=== PATIENT | male | born 1945 | race Caucasian/White ===

== ENCOUNTER 2020-04-08 18:10 | Day surgery (SDCO) | payer OTHER ==
[~2020-04-08 18:10] MED LIST: COLACE100 MG PO; DAILY VALUE1 EACH PO; ELIQUIS5 MG PO; HYDROXYZINE HCL10 MG PO; K-DUR20 MEQ PO; LASIX40 MG PO; LIPITOR 10MG TA10 MG PO; NEURONTIN100 MG PO; THERMOTABS TAB1 EACH PO; TOPROL XL 50 MG50 MG PO; TOPROL XL100 MG PO; ZAROXOLYN2.5 MG PO
[2020-04-08 19:25] LABS: BASOPHIL 0.3 % (0-2); EOSINOPHIL 0.1 % (0-7); HCT 43.7 % (42.0-52.0); LYMPHOCYTE 7.2 % (15-48); MCH 34.6 pg (25.0-31.0); MCHC 34.3 g/dL (32.0-36.0); MCV 100.9 fL (78.0-100.0); MONOCYTE 14.2 % (0-12); MPV 10.7 fL (6.0-9.5); NEUTROPHIL 77.6 % (41-80); NRBC 0; PLT 183 K/uL (150-400); RBC 4.33 M/uL (4.70-6.00); RDW 12.7 % (11.5-14.0); WBC 10.3 K/uL (4.0-10.5)
[2020-04-08 19:29] LABS: INR 2.12 (0.9-1.2); PROTHROMBIN TIME 22.6 SECONDS (11.4-13.6)
[2020-04-08 19:37] LABS: ALBUMIN 2.7 g/dL (3.4-5.0); BILIRUBIN - TOTAL 1.9 mg/dL (0.2-1.0); BUN/CREAT RATIO (CALC) 22.6 RATIO; CREATININE 0.53 mg/dL (0.67-1.17); GLOBULIN (CALCULATION) 5.4 g/dL; POTASSIUM 3.8 mmol/L (3.5-5.1); TOTAL PROTEIN 8.1 g/dL (6.4-8.2)
[2020-04-08 21:30] LABS: BILIRUBIN NEGATIVE (NEGATIVE); BLOOD 2+ Ery/uL (NEGATIVE); CLARITY CLEAR (CLEAR); COLOR YELLOW (YELLOW); GLUCOSE (U) NORMAL (NORMAL); LEUKOCYTES NEGATIVE Leu/uL (NEGATIVE); NITRITE NEGATIVE (NEGATIVE); PROTEIN TRACE (LOW) mg/dL (NEGATIVE); SPECIFIC GRAVITY >=1.030 (1.001-1.030); pH 5.5 (5.0-9.0)
[2020-04-08 21:34] LABS: BACTERIA TRACE
[2020-04-08 22:06] LABS: CORONAVIRUS 2019 SARS-COV-2 NEGATIVE (NEGATIVE); INFLUENZA A NAA NEGATIVE (NEGATIVE)
[2020-04-08] MEDS ORDERED: ELIQUIS5 MG PO (23:21)
[2020-04-08] MEDS ORDERED: ATORVASTATIN CA10 MG PO (23:22)
[2020-04-08] MEDS ORDERED: LASIX40 MG PO (23:23)
[2020-04-08] MEDS ORDERED: TOPROL XL100 MG PO (23:24)
[2020-04-08] MEDS ORDERED: K-DUR20 MEQ PO (23:25)
[2020-04-08] MEDS ORDERED: ONE-DAILY MULT1 EACH PO (23:26)
[2020-04-09 06:03] LABS: BASOPHIL 0.4 % (0-2); EOSINOPHIL 0.1 % (0-7); HCT 38.5 % (42.0-52.0); HGB 13.3 g/dl (13.2-18.0); LYMPHOCYTE 11.5 % (15-48); MCH 34.9 pg (25.0-31.0); MCHC 34.5 g/dL (32.0-36.0); MONOCYTE 17.2 % (0-12); MPV 10.4 fL (6.0-9.5); NEUTROPHIL 70.2 % (41-80); NRBC 0; PLT 164 K/uL (150-400); RBC 3.81 M/uL (4.70-6.00); RDW 12.6 % (11.5-14.0); WBC 10.5 K/uL (4.0-10.5)
[2020-04-09 06:11] LABS: INR 2.05 (0.9-1.2)
[2020-04-09 06:33] LABS: ALBUMIN 2.2 g/dL (3.4-5.0); BILIRUBIN - TOTAL 1.5 mg/dL (0.2-1.0); CREATININE 0.42 mg/dL (0.67-1.17); GLOBULIN (CALCULATION) 4.4 g/dL; MAGNESIUM 1.6 mg/dL (1.8-2.4); PHOSPHORUS 3.5 mg/dL (2.6-4.7); POTASSIUM 3.3 mmol/L (3.5-5.1); TOTAL PROTEIN 6.6 g/dL (6.4-8.2)
[2020-04-10 07:32] LABS: HCT 40.6 % (42.0-52.0); HGB 14.1 g/dl (13.2-18.0); MCHC 34.7 g/dL (32.0-36.0); MCV 100.7 fL (78.0-100.0); MPV 11.6 fL (6.0-9.5); RBC 4.03 M/uL (4.70-6.00); RDW 12.6 % (11.5-14.0); WBC 11.5 K/uL (4.0-10.5)
[2020-04-10 07:45] LABS: CREATININE 0.5 mg/dL (0.67-1.17); MAGNESIUM 1.7 mg/dL (1.8-2.4); POTASSIUM 3.3 mmol/L (3.5-5.1)
[2020-04-11 06:03] LABS: BASOPHIL 0.2 % (0-2); EOSINOPHIL 0.1 % (0-7); HCT 39.9 % (42.0-52.0); HGB 13.7 g/dl (13.2-18.0); LYMPHOCYTE 3.5 % (15-48); MCH 34.3 pg (25.0-31.0); MCHC 34.3 g/dL (32.0-36.0); MONOCYTE 5.9 % (0-12); MPV 11.3 fL (6.0-9.5); NEUTROPHIL 89.4 % (41-80); NRBC 0; PLT 195 K/uL (150-400); RBC 3.99 M/uL (4.70-6.00); RDW 12.6 % (11.5-14.0); WBC 14.9 K/uL (4.0-10.5)
[2020-04-11 06:42] LABS: BILIRUBIN - TOTAL 0.8 mg/dL (0.2-1.0); BUN/CREAT RATIO (CALC) 40.9 RATIO; CREATININE 0.44 mg/dL (0.67-1.17); GLOBULIN (CALCULATION) 4.6 g/dL; POTASSIUM 3.2 mmol/L (3.5-5.1); TOTAL PROTEIN 6.6 g/dL (6.4-8.2); VANCOMYCIN, TROUGH 10.2 ug/mL (10-20)
[2020-04-12] MEDS ORDERED: DOXYCYCLINE MO100 MG PO (08:56)
== END 2020-04-12 16:00 | disposition home or self-care (01) ==
LOC: FER 18:10 → FMS 21:57
PROVIDERS: Internal Medicine; Nurse Practitioner; Physician Assistant; ADMIT Internal Medicine
DX: L03.119 Cellulitis of unspecified part of limb (principal); I11.9 Hypertensive heart disease without heart failure; I48.91 Unspecified atrial fibrillation; I08.1 Rheumatic disorders of both mitral and tricuspid valves; R79.89 Other specified abnormal findings of blood chemistry; B37.2 Candidiasis of skin and nail; E78.5 Hyperlipidemia, unspecified; J45.909 Unspecified asthma, uncomplicated; F10.11 Alcohol abuse, in remission; Z98.890 Other specified postprocedural states; Z88.8 Allergy status to other drugs, medicaments and biological substances; Z88.0 Allergy status to penicillin; Z79.899 Other long term (current) drug therapy; Z82.49 Family history of ischemic heart disease and other diseases of the circulatory system; Z20.822 Contact with and (suspected) exposure to COVID-19; Z87.891 Personal history of nicotine dependence; Z86.79 Personal history of other diseases of the circulatory system
CPT/HCPCS: 36415; 70450; 70551; 71045; 71250; 80048; 80053; 80162; 80202; 81001; 82550; 83605; 83690; 83735; 83880; 84100; 84443; 84484; 85025; 85610; 85730; 86140; 86431; 87040; 87186; 93005; 97110; 97116; 97162; 97166; 97530; 97530-GP; 97535; G0378; G0480; J0692; J1160; J1940; J2270; J3370; J3475; J7030; J7040; J7050; J7512; U0002

== ENCOUNTER 2021-05-18 14:48 | Inpatient (IN) | payer OTHER ==
[~2021-05-18] VITALS: Ht 172.7 cm; Wt 116.0 kg
[~2021-05-18 14:48] MED LIST changes: +ATORVASTATIN CA10 MG PO; +DOXYCYCLINE MO100 MG PO; +ONE-DAILY MULT1 EACH PO
[2021-05-18 16:27] LABS: BASOPHIL 0.2 % (0-2); EOSINOPHIL 0.1 % (0-7); HCT 45.1 % (42.0-52.0); HGB 16.3 g/dl (13.2-18.0); LYMPHOCYTE 5.9 % (15-48); MCH 36.1 pg (25.0-31.0); MCHC 36.1 g/dL (32.0-36.0); MPV 9.7 fL (6.0-9.5); NEUTROPHIL 83.3 % (41-80); NRBC 0; PLT 167 K/uL (150-400); RBC 4.51 M/uL (4.70-6.00); RDW 12.7 % (11.5-14.0); WBC 14.3 K/uL (4.0-10.5)
[2021-05-18 17:01] LABS: ALBUMIN 3.2 g/dL (3.4-5.0); ALKALINE PHOSHATASE 121 U/L (46-116); ALT 50 U/L (16-63); AST 139 U/L (15-37); BILIRUBIN - TOTAL 2.7 mg/dL (0.2-1.0); BUN 25 mg/dL (7-18); BUN/CREAT RATIO (CALC) 37.9 RATIO; CHLORIDE 89 mmol/L (98-107); CO2 (BICARBONATE) 28 mmol/L (21-32); CPK 1769 U/L (39-308); CREATININE 0.66 mg/dL (0.67-1.17); GLOBULIN (CALCULATION) 5.4 g/dL; GLUCOSE 143 mg/dL (74-106); LIPASE 100 U/L (73-393); MAGNESIUM 2.1 mg/dL (1.8-2.4); POTASSIUM 4.3 mmol/L (3.5-5.1); TOTAL PROTEIN 8.6 g/dL (6.4-8.2)
[2021-05-18 17:02] LABS: INR 1.51 (0.9-1.2); PROTHROMBIN TIME 17.5 SECONDS (11.8-13.4)
[2021-05-18 17:03] LABS: PTT 38.4 SECONDS (24.4-34.7)
[2021-05-18 17:15] LABS: LACTIC ACID 2.5 mmol/L (0.4-1.9)
[2021-05-18 18:24] LABS: BILIRUBIN 2+ mg/dL (NEGATIVE); BLOOD 2+ Ery/uL (NEGATIVE); GLUCOSE (U) NORMAL (NORMAL); LEUKOCYTES TRACE Leu/uL (NEGATIVE); NITRITE POSITIVE (NEGATIVE); PROTEIN 1+ mg/dL (NEGATIVE); SPECIFIC GRAVITY 1.025 (1.001-1.030); pH 5.5 (5.0-9.0)
[2021-05-18 18:24] LABS: AMPHETAMINES NEGATIVE (NEGATIVE); BARBITURATES NEGATIVE (NEGATIVE); ECSTASY (MDMA) NEGATIVE (NEGATIVE); MARIJUANA (THC) NEGATIVE (NEGATIVE); METHADONE NEGATIVE (NEGATIVE); OPIATES NEGATIVE (NEGATIVE); OXYCODONE NEGATIVE (NEGATIVE)
[2021-05-18 18:27] LABS: COLOR AMBER (YELLOW)
[2021-05-18 18:28] LABS: CLARITY SLIGHTLY HAZY (CLEAR)
[2021-05-18 18:31] LABS: BACTERIA TRACE; MUCOUS TRACE; RENAL EPITHELIAL CELLS RARE; SQUAMOUS EPITHELIAL CELLS RARE; URINARY WBC RARE
[2021-05-19 06:09] LABS: BASOPHIL 0.4 % (0-2); EOSINOPHIL 0.4 % (0-7); HCT 36.4 % (42.0-52.0); HGB 12.7 g/dl (13.2-18.0); MCH 35.3 pg (25.0-31.0); MCHC 34.9 g/dL (32.0-36.0); MCV 101.1 fL (78.0-100.0); MONOCYTE 10.5 % (0-12); MPV 9.6 fL (6.0-9.5); NEUTROPHIL 77.9 % (41-80); NRBC 0; PLT 131 K/uL (150-400); RDW 13.1 % (11.5-14.0); WBC 10.4 K/uL (4.0-10.5)
[2021-05-19 06:39] LABS: ALBUMIN 2.4 g/dL (3.4-5.0); BILIRUBIN - DIRECT 1.1 mg/dL (0.00-0.20); BILIRUBIN - TOTAL 2.1 mg/dL (0.2-1.0); BUN/CREAT RATIO (CALC) 30.9 RATIO; C-REACTIVE PROTEIN 11.7 mg/dL (<=0.90); CREATININE 0.55 mg/dL (0.67-1.17); GLOBULIN (CALCULATION) 3.5 g/dL; MAGNESIUM 1.9 mg/dL (1.8-2.4); PHOSPHORUS 3.1 mg/dL (2.6-4.7); POTASSIUM 3.3 mmol/L (3.5-5.1)
[2021-05-19 06:40] LABS: TOTAL PROTEIN 5.9 g/dL (6.4-8.2)
--- NOTE | 2021-05-19 08:43 | NUR ---
PT SLEEPING AT 0700 AND 0800. DID NOT ATTEMPT TO WAKE HIM D/T REPORT OF DIFFICULT NIGHT. NOTIFIED BY PHYSICAL THERAPIST THAT PT NOT AROUSING TO VOICE OR STERNAL RUB AT 0835. NOTIFIED. BG 133. ABGS ORDERED. PT RECEIVED 2 MG PO ATIVAN AT 0530.
[2021-05-20 05:42] LABS: BASOPHIL 0.7 % (0-2); EOSINOPHIL 1.4 % (0-7); HGB 13.5 g/dl (13.2-18.0); LYMPHOCYTE 10.3 % (15-48); MCH 36.5 pg (25.0-31.0); MCHC 35.5 g/dL (32.0-36.0); MCV 102.7 fL (78.0-100.0); MONOCYTE 13.3 % (0-12); MPV 9.9 fL (6.0-9.5); NEUTROPHIL 73.7 % (41-80); NRBC 0; PLT 156 K/uL (150-400); WBC 9.1 K/uL (4.0-10.5)
[2021-05-20 06:39] LABS: BUN/CREAT RATIO (CALC) 34.9 RATIO; CREATININE 0.43 mg/dL (0.67-1.17); POTASSIUM 3.1 mmol/L (3.5-5.1)
[2021-05-21 05:45] LABS: BASOPHIL 0.5 % (0-2); EOSINOPHIL 1.4 % (0-7); HGB 13.4 g/dl (13.2-18.0); LYMPHOCYTE 13.6 % (15-48); MCH 35.3 pg (25.0-31.0); MCHC 34.4 g/dL (32.0-36.0); MCV 102.6 fL (78.0-100.0); MONOCYTE 17.1 % (0-12); MPV 9.8 fL (6.0-9.5); NEUTROPHIL 66.6 % (41-80); NRBC 0; PLT 148 K/uL (150-400); RDW 13.2 % (11.5-14.0); WBC 7.7 K/uL (4.0-10.5)
[2021-05-21 06:30] LABS: ALBUMIN 2.2 g/dL (3.4-5.0); BILIRUBIN - DIRECT 0.7 mg/dL (0.00-0.20); BILIRUBIN - TOTAL 1.6 mg/dL (0.2-1.0); BUN/CREAT RATIO (CALC) 37.5 RATIO; CREATININE 0.4 mg/dL (0.67-1.17); GLOBULIN (CALCULATION) 4.6 g/dL; POTASSIUM 3.2 mmol/L (3.5-5.1); TOTAL PROTEIN 6.8 g/dL (6.4-8.2)
[2021-05-22 06:35] LABS: BASOPHIL 0.6 % (0-2); EOSINOPHIL 1.2 % (0-7); HCT 41.1 % (42.0-52.0); HGB 14.2 g/dl (13.2-18.0); LYMPHOCYTE 8.7 % (15-48); MCHC 34.5 g/dL (32.0-36.0); MCV 104.3 fL (78.0-100.0); MONOCYTE 16.6 % (0-12); MPV 9.6 fL (6.0-9.5); NEUTROPHIL 72.2 % (41-80); NRBC 0; PLT 158 K/uL (150-400); RBC 3.94 M/uL (4.70-6.00); RDW 13.1 % (11.5-14.0); WBC 6.8 K/uL (4.0-10.5)
[2021-05-22 06:51] LABS: BUN/CREAT RATIO (CALC) 39.5 RATIO; CREATININE 0.38 mg/dL (0.67-1.17); POTASSIUM 3.3 mmol/L (3.5-5.1)
--- NOTE | 2021-05-22 16:34 | NUR ---
05/22/21 Mr. Quevedo's daughter, Carolyn Li, would like him to go to [facility] for SNF placement. Mr. Quevedo has agreed to placement. However, he is still displaying some confusion. - A referral has been made to [facility].
[2021-05-23 06:18] LABS: BUN/CREAT RATIO (CALC) 43.2 RATIO; CREATININE 0.44 mg/dL (0.67-1.17); POTASSIUM 3.5 mmol/L (3.5-5.1)
--- NOTE | 2021-05-23 10:30 | NUR ---
05/23/21 [facility] has accepted patient pending insurance approval. Patient will need a new COVID test if insurance authorization is received.
--- NOTE | 2021-05-24 13:12 | NUR ---
05/24/21 Patient will meet EMS criteria for transport per BENJAMIN Hill RN, if approved to go to [facility]. Insurance authorization is still pending.
[2021-05-24] MEDS ORDERED: FLORANEX TABLE1 EACH PO (17:55)
[2021-05-24] MEDS ORDERED: SILVASORB44.4 ML TOP (17:55)
[2021-05-24] MEDS ORDERED: TOPROL XL 50 MG50 MG PO (17:55)
[2021-05-24] MEDS ORDERED: DOXYCYCLINE MO100 M1 PO (17:55)
[2021-05-24] MEDS ORDERED: VITAMIN B-1100 M1 PO (17:55)
[2021-05-24] MEDS ORDERED: PANTOPRAZOLE SO40 MG PO (17:55)
[2021-05-24] MEDS ORDERED: DIGITEK125 MCG PO (17:55)
== END 2021-05-24 20:20 | DRG 871 ==
LOC: FER 14:48 → FTCU 19:01
PROVIDERS: Emergency Medicine; Family Medicine; Nurse Practitioner; ADMIT Internal Medicine
PROC: 3E03329 Introduction of Other Anti-infective into Peripheral Vein, Percutaneous Approach (ICD-10-PCS; principal; 2021-05-18)
PROC: HZ2ZZZZ Detoxification Services for Substance Abuse Treatment (ICD-10-PCS; 2021-05-18)
DX: A41.9 Sepsis, unspecified organism (principal); G93.41 Metabolic encephalopathy; J96.01 Acute respiratory failure with hypoxia; L03.116 Cellulitis of left lower limb; M62.82 Rhabdomyolysis; F10.231 Alcohol dependence with withdrawal delirium; I50.32 Chronic diastolic (congestive) heart failure; I48.20 Chronic atrial fibrillation, unspecified; Z20.822 Contact with and (suspected) exposure to COVID-19; I11.0 Hypertensive heart disease with heart failure; R73.9 Hyperglycemia, unspecified; E87.6 Hypokalemia; L89.101 Pressure ulcer of unspecified part of back, stage 1; I87.2 Venous insufficiency (chronic) (peripheral); D53.9 Nutritional anemia, unspecified; F03.90 Unspecified dementia, unspecified severity, without behavioral disturbance, psychotic disturbance, mood disturbance, and anxiety; E78.5 Hyperlipidemia, unspecified; I25.10 Atherosclerotic heart disease of native coronary artery without angina pectoris; E66.9 Obesity, unspecified; H91.90 Unspecified hearing loss, unspecified ear; Z79.01 Long term (current) use of anticoagulants; Z79.899 Other long term (current) drug therapy; Z88.0 Allergy status to penicillin; Z88.8 Allergy status to other drugs, medicaments and biological substances; Z68.38 Body mass index [BMI] 38.0-38.9, adult
CPT/HCPCS: 36415; 36600; 70450; 71045; 72125; 72128; 72131; 73600; 80048; 80053; 80061; 80076; 80305; 81001; 82140; 82248; 82550; 82803; 83036; 83605; 83615; 83690; 83735; 83880; 84100; 84145; 84439; 84443; 84484; 85025; 85610; 85730; 86140; 87040; 93005; 94010; 94640; 94760; 94762; 96372; 97110; 97163; 97167; 97530; 97530-GP; G0480; J0690; J0692; J1650; J2060; J3411; J3475; J3480; J7030; U0002

== ENCOUNTER 2021-05-26 18:09 | Inpatient (IN) | payer OTHER ==
[~2021-05-26] VITALS: Ht 172.7 cm; Wt 119.4 kg
[~2021-05-26 18:09] MED LIST changes: +DIGITEK125 MCG PO; +DOXYCYCLINE MO100 M1 PO; +FLORANEX TABLE1 EACH PO; +PANTOPRAZOLE SO40 MG PO; +SILVASORB44.4 ML TOP; +VITAMIN B-1100 M1 PO
[2021-05-26 19:17] LABS: BASOPHIL 0.4 % (0-2); EOSINOPHIL 0.3 % (0-7); HCT 41.7 % (42.0-52.0); HGB 14.4 g/dl (13.2-18.0); LYMPHOCYTE 4.9 % (15-48); MCH 36.2 pg (25.0-31.0); MCHC 34.5 g/dL (32.0-36.0); MCV 104.8 fL (78.0-100.0); MONOCYTE 3.2 % (0-12); MPV 12.1 fL (6.0-9.5); NEUTROPHIL 90.4 % (41-80); NRBC 0; PLT 183 K/uL (150-400); RBC 3.98 M/uL (4.70-6.00); RDW 13.2 % (11.5-14.0); WBC 15.2 K/uL (4.0-10.5)
[2021-05-26 19:34] LABS: LACTIC ACID 3.8 mmol/L (0.4-1.9)
[2021-05-26 19:42] LABS: BILIRUBIN 1+ mg/dL (NEGATIVE); BLOOD NEGATIVE Ery/uL (NEGATIVE); CLARITY CLEAR (CLEAR); COLOR YELLOW (YELLOW); GLUCOSE (U) NORMAL (NORMAL); LEUKOCYTES NEGATIVE Leu/uL (NEGATIVE); NITRITE NEGATIVE (NEGATIVE); PROTEIN NEGATIVE (NEGATIVE); SPECIFIC GRAVITY 1.025 (1.001-1.030); pH 5.5 (5.0-9.0)
[2021-05-26 19:59] LABS: ALBUMIN 2.2 g/dL (3.4-5.0); BILIRUBIN - TOTAL 0.7 mg/dL (0.2-1.0); CREATININE 0.55 mg/dL (0.67-1.17); GLOBULIN (CALCULATION) 5.8 g/dL
[2021-05-26 23:49] LABS: CORONAVIRUS 2019 SARS-COV-2 NEGATIVE (NEGATIVE); INFLUENZA A NAA NEGATIVE (NEGATIVE)
[2021-05-27] MEDS ORDERED: DEXAMETHASONE 2M2 MG PO (00:33)
[2021-05-27] MEDS ORDERED: DAILY PROBIOTI250 MG PO (00:35)
[2021-05-27] MEDS ORDERED: LASIX10 MG/ML PO (00:37)
[2021-05-27] MEDS ORDERED: LOPRESSOR50 MG PO (00:38)
[2021-05-27] MEDS ORDERED: POTASSIUM20 MEQ/11 PO (00:39)
[2021-05-27] MEDS ORDERED: BETADINE30 ML TOP (00:44)
[2021-05-27] MEDS ORDERED: SANTYL15 GM TOP (00:45)
[2021-05-27] MEDS ORDERED: SILVADENE20 G1 TOP (00:47)
[2021-05-27 06:20] LABS: BASOPHIL 0.3 % (0-2); EOSINOPHIL 2.4 % (0-7); HCT 37.4 % (42.0-52.0); HGB 12.7 g/dl (13.2-18.0); LYMPHOCYTE 4.4 % (15-48); MCH 35.7 pg (25.0-31.0); MCV 105.1 fL (78.0-100.0); MONOCYTE 2.8 % (0-12); MPV 11.9 fL (6.0-9.5); NEUTROPHIL 89.5 % (41-80); NRBC 0; PLT 170 K/uL (150-400); RBC 3.56 M/uL (4.70-6.00); RDW 13.2 % (11.5-14.0); WBC 15.5 K/uL (4.0-10.5)
[2021-05-27 07:20] LABS: BILIRUBIN - TOTAL 0.8 mg/dL (0.2-1.0); CREATININE 0.5 mg/dL (0.67-1.17); GLOBULIN (CALCULATION) 4.7 g/dL; MAGNESIUM 1.9 mg/dL (1.8-2.4); TOTAL PROTEIN 6.7 g/dL (6.4-8.2)
[2021-05-27 07:36] LABS: POTASSIUM 2.6 mmol/L (3.5-5.1)
[2021-05-28 06:05] LABS: BASOPHIL 0.3 % (0-2); EOSINOPHIL 2.2 % (0-7); HCT 37.3 % (42.0-52.0); HGB 12.3 g/dl (13.2-18.0); LYMPHOCYTE 3.8 % (15-48); MCH 34.8 pg (25.0-31.0); MCV 105.7 fL (78.0-100.0); MONOCYTE 2.4 % (0-12); MPV 11.7 fL (6.0-9.5); NEUTROPHIL 90.5 % (41-80); NRBC 0; PLT 218 K/uL (150-400); RBC 3.53 M/uL (4.70-6.00); RDW 13.5 % (11.5-14.0); WBC 20.5 K/uL (4.0-10.5)
[2021-05-28 06:27] LABS: ALBUMIN 1.8 g/dL (3.4-5.0); BILIRUBIN - TOTAL 0.8 mg/dL (0.2-1.0); BUN/CREAT RATIO (CALC) 24.1 RATIO; CREATININE 0.54 mg/dL (0.67-1.17); GLOBULIN (CALCULATION) 4.5 g/dL; MAGNESIUM 1.4 mg/dL (1.8-2.4); PHOSPHORUS 2.7 mg/dL (2.6-4.7); POTASSIUM 2.8 mmol/L (3.5-5.1); TOTAL PROTEIN 6.3 g/dL (6.4-8.2)
[2021-05-28 13:32] LABS: BASOPHIL 0.5 % (0-2); EOSINOPHIL 2.7 % (0-7); HCT 43.3 % (42.0-52.0); HGB 14.7 g/dl (13.2-18.0); MCH 35.6 pg (25.0-31.0); MCHC 33.9 g/dL (32.0-36.0); MCV 104.8 fL (78.0-100.0); MONOCYTE 2.5 % (0-12); MPV 11.4 fL (6.0-9.5); NEUTROPHIL 88.4 % (41-80); NRBC 0; PLT 277 K/uL (150-400); RBC 4.13 M/uL (4.70-6.00); RDW 13.3 % (11.5-14.0); WBC 20.9 K/uL (4.0-10.5)
[2021-05-28 14:49] LABS: C-REACTIVE PROTEIN 9.2 mg/dL (<=0.90); CREATININE 0.59 mg/dL (0.67-1.17); POTASSIUM 3.7 mmol/L (3.5-5.1)
[2021-05-29 00:13] LABS: BILIRUBIN - TOTAL 0.8 mg/dL (0.2-1.0); BUN/CREAT RATIO (CALC) 19.5 RATIO; CREATININE 0.77 mg/dL (0.67-1.17); GLOBULIN (CALCULATION) 4.9 g/dL; MAGNESIUM 1.1 mg/dL (1.8-2.4); POTASSIUM 3.1 mmol/L (3.5-5.1); TOTAL PROTEIN 6.9 g/dL (6.4-8.2)
[2021-05-29 06:14] LABS: BASOPHIL 0.7 % (0-2); HCT 41.1 % (42.0-52.0); HGB 13.7 g/dl (13.2-18.0); LYMPHOCYTE 3.9 % (15-48); MCH 36.2 pg (25.0-31.0); MCHC 33.3 g/dL (32.0-36.0); MCV 108.7 fL (78.0-100.0); MONOCYTE 2.7 % (0-12); MPV 11.7 fL (6.0-9.5); NEUTROPHIL 89.7 % (41-80); NRBC 0; PLT 170 K/uL (150-400); RBC 3.78 M/uL (4.70-6.00); RDW 13.5 % (11.5-14.0); WBC 16.9 K/uL (4.0-10.5)
[2021-05-29 07:04] LABS: PROTHROMBIN TIME 21.8 SECONDS (11.8-13.4)
[2021-05-29 07:06] LABS: TOTAL CELL COUNT 100
[2021-05-29 07:07] LABS: BAND 2 % (0-10); LYMPHOCYTE(M) 8 % (15-48); MONOCYTE(M) 2 % (0-12); NEUTROPHILS(M) 88 % (41-80)
[2021-05-29 07:08] LABS: PLATELET ESTIMATE NORMAL; PLATELET MORPHOLOGY NORMAL
[2021-05-29 07:46] LABS: BILIRUBIN - TOTAL 1.1 mg/dL (0.2-1.0); C-REACTIVE PROTEIN 13.1 mg/dL (<=0.90); CREATININE 0.63 mg/dL (0.67-1.17); FOLIC ACID (SERUM) 16.2 ng/mL (8.6-58.9); MAGNESIUM 1.6 mg/dL (1.8-2.4); PHOSPHORUS 3.6 mg/dL (2.6-4.7); POTASSIUM 3.2 mmol/L (3.5-5.1)
[2021-05-29 19:02] LABS: BASOPHIL 0.5 % (0-2); EOSINOPHIL 2.9 % (0-7); HCT 37.9 % (42.0-52.0); HGB 12.9 g/dl (13.2-18.0); LYMPHOCYTE 4.2 % (15-48); MCH 35.6 pg (25.0-31.0); MPV 11.3 fL (6.0-9.5); NEUTROPHIL 88.6 % (41-80); NRBC 0; PLT 233 K/uL (150-400); RBC 3.62 M/uL (4.70-6.00); RDW 13.2 % (11.5-14.0); WBC 17.7 K/uL (4.0-10.5)
[2021-05-29 19:10] LABS: MCV 104.7 fL (78.0-100.0)
[2021-05-29 19:19] LABS: BUN/CREAT RATIO (CALC) 23.4 RATIO; CREATININE 0.64 mg/dL (0.67-1.17); MAGNESIUM 1.6 mg/dL (1.8-2.4); PHOSPHORUS 2.4 mg/dL (2.6-4.7)
[2021-05-30 08:46] LABS: BASOPHIL 0.4 % (0-2); EOSINOPHIL 1.9 % (0-7); HCT 39.5 % (42.0-52.0); HGB 13.3 g/dl (13.2-18.0); LYMPHOCYTE 5.9 % (15-48); MCH 35.5 pg (25.0-31.0); MCHC 33.7 g/dL (32.0-36.0); MCV 105.3 fL (78.0-100.0); MONOCYTE 5.3 % (0-12); MPV 11.2 fL (6.0-9.5); NEUTROPHIL 85.7 % (41-80); NRBC 0; PLT 247 K/uL (150-400); RBC 3.75 M/uL (4.70-6.00); RDW 13.4 % (11.5-14.0); WBC 15.8 K/uL (4.0-10.5)
[2021-05-30 09:48] LABS: ALBUMIN 2.1 g/dL (3.4-5.0); ALKALINE PHOSHATASE 111 U/L (46-116); ALT 22 U/L (16-63); AST 19 U/L (15-37); BUN 17 mg/dL (7-18); C-REACTIVE PROTEIN > 18.00 mg/dL (<=0.90); CHLORIDE 101 mmol/L (98-107); CO2 (BICARBONATE) 28 mmol/L (21-32); CPK 39 U/L (39-308); CREATININE 0.57 mg/dL (0.67-1.17); GLOBULIN (CALCULATION) 5.1 g/dL; GLUCOSE 145 mg/dL (74-106); MAGNESIUM 2.1 mg/dL (1.8-2.4); POTASSIUM 3.2 mmol/L (3.5-5.1); TOTAL PROTEIN 7.2 g/dL (6.4-8.2)
[2021-05-31 00:09] LABS: ADENOVIRUS F 40/41 Not Detected (Not Detected); ASTROVIRUS Not Detected (Not Detected); C DIFFICILE TOXIN A/B Not Detected (Not Detected); CAMPYLOBACTER Not Detected (Not Detected); CRYPTOSPORIDIUM Not Detected (Not Detected); CYCLOSPORA CAYETANENSIS Not Detected (Not Detected); ENTAMOEBA HISTOLYTICA Not Detected (Not Detected); ENTEROAGGREGATIVE E COLI Not Detected (Not Detected); ENTEROPATHOGENIC E COLI Not Detected (Not Detected); ENTEROTOXIGENIC E COLI Not Detected (Not Detected); GIARDIA LAMBLIA Not Detected (Not Detected); NOROVIRUS GI/GII Not Detected (Not Detected); PLESIOMONAS SHIGELLOIDES Not Detected (Not Detected); ROTAVIRUS A Not Detected (Not Detected); SALMONELLA Not Detected (Not Detected); SAPOVIRUS Not Detected (Not Detected); SHIGA-TOXIN-PRODUCING E COLI Not Detected (Not Detected); SHIGELLA/ENTEROINVASIVE E COLI Not Detected (Not Detected); VIBRIO Not Detected (Not Detected); VIBRIO CHOLERAE Not Detected (Not Detected); YERSINIA ENTEROCOLITICA Not Detected (Not Detected)
[2021-05-31 04:13] LABS: BASOPHIL 0.5 % (0-2); EOSINOPHIL 4.4 % (0-7); HCT 35.4 % (42.0-52.0); HGB 12.2 g/dl (13.2-18.0); LYMPHOCYTE 9.4 % (15-48); MCH 35.8 pg (25.0-31.0); MCHC 34.5 g/dL (32.0-36.0); MCV 103.8 fL (78.0-100.0); MONOCYTE 6.5 % (0-12); NEUTROPHIL 78.2 % (41-80); NRBC 0; PLT 234 K/uL (150-400); RBC 3.41 M/uL (4.70-6.00); RDW 13.2 % (11.5-14.0); WBC 13.6 K/uL (4.0-10.5)
[2021-05-31 04:33] LABS: BUN/CREAT RATIO (CALC) 24.1 RATIO; CREATININE 0.54 mg/dL (0.67-1.17); POTASSIUM 3.7 mmol/L (3.5-5.1)
[2021-06-01 06:24] LABS: BASOPHIL 0.7 % (0-2); EOSINOPHIL 4.5 % (0-7); HCT 34.9 % (42.0-52.0); HGB 11.8 g/dl (13.2-18.0); LYMPHOCYTE 13.3 % (15-48); MCH 35.2 pg (25.0-31.0); MCHC 33.8 g/dL (32.0-36.0); MCV 104.2 fL (78.0-100.0); MONOCYTE 6.5 % (0-12); MPV 11.6 fL (6.0-9.5); NRBC 0; PLT 264 K/uL (150-400); RBC 3.35 M/uL (4.70-6.00); RDW 13.5 % (11.5-14.0)
[2021-06-01 07:20] LABS: BUN/CREAT RATIO (CALC) 25.5 RATIO; CREATININE 0.47 mg/dL (0.67-1.17); POTASSIUM 3.3 mmol/L (3.5-5.1)
[2021-06-01] MEDS ORDERED: MAG-OXIDE 400M400 MG PO (07:40)
[2021-06-01] MEDS ORDERED: FOLIC ACID1 MG PO (07:40)
[2021-06-01] MEDS ORDERED: KEFLEX250 MG PO (07:40)
== END 2021-06-01 11:20 | DRG 871 ==
LOC: FER 18:09 → FTCU 23:08
PROVIDERS: Emergency Medicine; Family Medicine; Nurse Practitioner; ADMIT Internal Medicine
DX: A41.9 Sepsis, unspecified organism (principal); L89.313 Pressure ulcer of right buttock, stage 3; G93.41 Metabolic encephalopathy; L03.116 Cellulitis of left lower limb; L03.115 Cellulitis of right lower limb; E87.2 Acidosis; I48.20 Chronic atrial fibrillation, unspecified; I50.22 Chronic systolic (congestive) heart failure; L03.317 Cellulitis of buttock; R65.20 Severe sepsis without septic shock; Z20.822 Contact with and (suspected) exposure to COVID-19; K52.9 Noninfective gastroenteritis and colitis, unspecified; I11.0 Hypertensive heart disease with heart failure; I87.2 Venous insufficiency (chronic) (peripheral); L27.0 Generalized skin eruption due to drugs and medicaments taken internally; T36.8X5A Adverse effect of other systemic antibiotics, initial encounter; E87.6 Hypokalemia; E83.42 Hypomagnesemia; E83.39 Other disorders of phosphorus metabolism; F10.10 Alcohol abuse, uncomplicated; F03.90 Unspecified dementia, unspecified severity, without behavioral disturbance, psychotic disturbance, mood disturbance, and anxiety; E66.9 Obesity, unspecified; I25.10 Atherosclerotic heart disease of native coronary artery without angina pectoris; E78.5 Hyperlipidemia, unspecified; J45.909 Unspecified asthma, uncomplicated; I73.9 Peripheral vascular disease, unspecified; Z68.38 Body mass index [BMI] 38.0-38.9, adult; Z98.49 Cataract extraction status, unspecified eye; Z87.891 Personal history of nicotine dependence; Z79.01 Long term (current) use of anticoagulants; Z79.899 Other long term (current) drug therapy
CPT/HCPCS: 36415; 70450; 71045; 80048; 80053; 80162; 80202; 81003; 82140; 82550; 82746; 83605; 83690; 83735; 83874; 83880; 84100; 84145; 84484; 85025; 85610; 86140; 87040; 87045; 87046; 87070; 87077; 87186; 87205; 87449; 93005; 97162; 97166; 97530; 97530-GP; J0692; J1200; J2185; J3370; J3475; J3480; J7030; J7040; J7050; J7120; Q9967; U0002